=== PATIENT | female | born 1965 ===

== ENCOUNTER 2022-12-13 05:49 | Day surgery (SDC) | payer OTHER ==
[~2022-12-13] VITALS: Ht 152.4 cm; Wt 64.4 kg
[~2022-12-13 05:49] MED LIST: PROGEST PO; SINGULAIR10 MG PO
== END 2022-12-13 16:45 | disposition home or self-care (01) ==
LOC: CIR.AMB 05:49
PROVIDERS: ATTEND Surgery
DX: D48.1 Neoplasm of uncertain behavior of connective and other soft tissue (principal); L72.0 Epidermal cyst; R22.2 Localized swelling, mass and lump, trunk; Z20.822 Contact with and (suspected) exposure to COVID-19